=== PATIENT | male | born 1950 | race Caucasian/White ===

== ENCOUNTER 2018-11-03 14:01 | Outpatient (REF) | payer MEDICARE, SELFPAY ==
[2018-11-03 21:08] LABS: HGB 16.2 g/dL (13.5-17.5); Mean Corp. HGB Concentration 34.5 g/dL (32.0-36.0); Mean Corpuscular Hemoglobin 31.5 pg (27.0-33.0); Mean Corpuscular Volume 91.3 fL (80-95); Mean Platelet Volume 10.3 fL (8.0-11.0); Platelet Count 222 x1000/uL (130-400); RBC 5.15 m/cumm (4.50-6.00); RBC Distribution Width 13.1 % (11.8-14.1); White Blood Cell Count 8.66 k/cumm (4.4-10.8)
[2018-11-03 21:31] LABS: BUN 15 mg/dL (7-18); CREATININE 1.15 mg/dL (0.70-1.30); Chloride 104 mmol/L (98-107); Glucose 94 mg/dL (70-100); Sodium 140 mmol/L (136-145); TSH 2.22 uIU/mL (0.358-3.74)
[2018-11-03 21:37] LABS: Calcium 11.6 mg/dL (8.5-10.1)
== END 2018-11-03 14:21 ==
LOC: NCHCN 14:01
PROVIDERS: PCP Internal Medicine; Visit Provider Internal Medicine
DX: R00.1 Bradycardia, unspecified (principal); R53.83 Other fatigue
CPT/HCPCS: 80048; 85027; 84443

== ENCOUNTER 2019-02-05 11:49 | Outpatient (REF) | payer MEDICARE, SELFPAY ==
[2019-02-05 21:19] LABS: ALT 29 U/L (12-78); AST 16 U/L (15-37); Cholesterol 272 mg/dL (50-200); HDL Cholesterol 34 mg/dL (40-60); LDL CHOLESTEROL 212 mg/dL (<100); Triglyceride 139 mg/dL (30-150)
== END 2019-02-05 12:09 ==
LOC: LBN 11:49
PROVIDERS: PCP Internal Medicine; Visit Provider Internal Medicine Cardiovascular Disease
DX: I10 Essential (primary) hypertension (principal)
CPT/HCPCS: 80061; 83721; 84450; 84460

== ENCOUNTER 2020-10-21 18:57 | Outpatient (REF) | payer MEDICARE, SELFPAY ==
[2020-10-21 21:53] LABS: Anion Gap 8.1 mmol/L (3-11); BUN 17 mg/dL (7-18); CO2 25.9 mmol/L (21.0-32.0); CREATININE 1.19 mg/dL (0.70-1.30); Calcium 11.4 mg/dL (8.5-10.1); Calculated LDL 85 mg/dL (<100); Chloride 103 mmol/L (98-107); Cholesterol 169 mg/dL (<200); Glucose 94 mg/dL (74-106); HDL Cholesterol 32 mg/dL (40-60); Potassium 4.6 mmol/L (3.5-5.1); Sodium 137 mmol/L (136-145); Triglyceride 262 mg/dL (<150)
== END 2020-10-21 19:17 ==
LOC: NCHCN 18:57
PROVIDERS: PCP Internal Medicine; Visit Provider Internal Medicine
DX: E78.5 Hyperlipidemia, unspecified (principal); I10 Essential (primary) hypertension; E83.52 Hypercalcemia
CPT/HCPCS: 80048; 80061

== ENCOUNTER 2021-10-18 21:08 | Outpatient (REF) | payer MEDICARE, SELFPAY ==
[2021-10-18 21:31] LABS: ALT 22 U/L (16-63); AST 13 U/L (15-37); Albumin 3.8 g/dL (3.4-5.0); Alkaline Phosphatase 86 U/L (46-116); Anion Gap 5.8 mmol/L (3-11); BUN 13 mg/dL (7-18); Bilirubin, Total 0.4 mg/dL (0.2-1.0); CO2 28.2 mmol/L (21.0-32.0); CREATININE 1.2 mg/dL (0.70-1.30); Chloride 104 mmol/L (98-107); Estimated GFR 59.35 (mL/min/1.73m2); Glucose 135 mg/dL (74-106); Potassium 4.9 mmol/L (3.5-5.1); Sodium 138 mmol/L (136-145); Total Protein 6.8 g/dL (6.4-8.2)
[2021-10-18 21:43] LABS: Calcium 11.6 mg/dL (8.5-10.1)
[2021-10-19 00:25] LABS: Vitamin D 25 Total 25.9 ng/mL (30-100)
[2021-10-20 10:06] LABS: Parathyroid Hormone,Intact 161 pg/mL (19-88)
== END 2021-10-18 21:09 | disposition home or self-care (01) ==
LOC: NCHCN 21:08
PROVIDERS: PCP Internal Medicine; Visit Provider Internal Medicine
DX: E21.0 Primary hyperparathyroidism (principal); I10 Essential (primary) hypertension
CPT/HCPCS: 80053; 82306; 83970

== ENCOUNTER 2023-01-22 14:59 | Outpatient (REF) | payer MEDICARE, MEDICAID, SELFPAY ==
[2023-01-22 14:56] LABS: HCT 46.7 % (40.0-50.0); HGB 15.7 g/dL (13.5-17.5); MCHC 33.6 % (32.0-36.0); MCV 89 fL (80-95); MPV 9.7 fL (8.0-11.0); Platelet Count 267 10^3/uL (130-400); RBC 5.24 10^6/uL (4.36-5.78); RDW-SD 42.3 fL; WBC 7.92 10^3/uL (4.4-10.8)
--- OUTSIDE RECORDS SUMMARY | 2023-01-22 15:05 | XMS_ITS | CCD ---
Author Name Unknown Address [address] [place] [address] [id number] Organization Unknown Address [address] [place] [address] [id number] Care Team Providers Care Neon Sign Erector Name Role Phone LIAN WILLIS Attending Physician [phone] Vital Signs Unknown or Not Available. Allergies Allergy Code Allergy Type Reaction Status GABAPENTIN 94635 Drug allergy AGHITATION Active Procedures Unknown or Not Available. History of Immunizations Unknown or Not Available. Problems Unknown or Not Available. Results Unknown or Not Available. Active Medications Unknown or Not Available. Medications Administered During Visit Unknown or Not Available. Encounters Encounter Diagnosis Diagnosis Code Start Date Refusal of treatment by patient [id number] 09/14/2021 Social History Smoking Status Code Start Date End Date Former smoker [id number] Patient Decision Aids Unknown or Not Available. Discharge Instructions You were admitted to [facility] on 09/14/2021 08:32 with a principal diagnosis of Procedure and treatment not carried out because of patient's decision for other reasons You were discharged from [facility] on 09/14/2021 08:32 Should you have any questions prior to discharge, please contact a member of your healthcare team. If you have left the hospital and have any questions, please contact your primary care physician. Chief Complaint and Reason For Visit Chief Complaint Date of Onset Primary hyperparathyroidism Function Status Unknown or Not Available. Plan of Care Unknown or Not Available. Referral/Transition of Care Unknown or Not Available.
--- OUTSIDE RECORDS SUMMARY | 2023-01-22 15:05 | XMS_ITS | CCD ---
Author Name Unknown Address [address] [place] [address] [id number] Organization Unknown Address [address] [place] [address] [id number] Care Team Providers Care [employer] Name Role Phone LIAN WILLIS Attending Physician [phone] Vital Signs Unknown or Not Available. Allergies Allergy Code Allergy Type Reaction Status GABAPENTIN 39110 Drug allergy AGHITATION Active Procedures Unknown or Not Available. History of Immunizations Unknown or Not Available. Problems Unknown or Not Available. Results Unknown or Not Available. Active Medications Unknown or Not Available. Medications Administered During Visit Unknown or Not Available. Encounters Encounter Diagnosis Diagnosis Code Start Date Imaging of musculoskeletal system abnormal [id number] 12/05/2021 Social History Smoking Status Code Start Date End Date Former smoker [id number] Patient Decision Aids Unknown or Not Available. Discharge Instructions You were admitted to [facility] on 12/05/2021 13:47 with a principal diagnosis of Abnormal findings on diagnostic imaging of other parts of musculoskeletal system You were discharged from [facility] on 12/05/2021 13:47 Should you have any questions prior to discharge, please contact a member of your healthcare team. If you have left the hospital and have any questions, please contact your primary care physician. Chief Complaint and Reason For Visit Chief Complaint Date of Onset HYPERPARATHYROIDISM Function Status Unknown or Not Available. Plan of Care Unknown or Not Available. Referral/Transition of Care Unknown or Not Available.
--- OUTSIDE RECORDS SUMMARY | 2023-01-22 15:05 | XMS_ITS | CCD ---
Author Name Unknown Address [address] [place] [address] [id number] Organization Unknown Address [address] [place], [place] [id number] Care Team Providers Care [employer] Dean Name Role Phone EMILY BRADY Attending Physician [phone] Vital Signs Unknown or Not Available. Allergies Allergy Code Allergy Type Reaction Status GABAPENTIN 77047 Drug allergy AGHITATION Active Procedures Unknown or Not Available. History of Immunizations Unknown or Not Available. Problems Unknown or Not Available. Results CALCIUM URINE QUANT - Collec t Date/Time: 01/01/2022 11:05 Test Name Code Test Result Test Units Test Ref Rang e CALCIUM CONC. URINE 18 mg/dL TOTAL VOLUME 2125.0 mL HOURS COLLECTED 24 hours CALCIUM URINE 98527-9 383 mg/24 hr L=50 H=400 COLLECTION- TIMED N/A CHRISTINA. STARTED 01/01/22 N/A COMPREHENSIVE METABOLIC PANE L (CMP) - Collect Date/Time: 01/02/2022 12:27 Test Name Code Test Result Test Units Test Ref Rang e GLUCOSE 2345-7 105 mg/dL L=70 H=116 BUN 3094-0 19 mg/dL L=6 H=25 CREATININE 2160-0 1.30 mg/dL L=0.67 H=1.17 SODIUM SERUM 2951-2 138 mmol/L L=136 H=145 POTASSIUM SERUM 2823-3 4.9 mmol/L L=3.4 H=5 .2 CHLORIDE SERUM 2075-0 105 mmol/L L=96 H=110 CARBON DIOXIDE (CO2) 2028-9 27 mmol/L L=22 H=34 ANION GAP 08634-3 6.4 mmol/L CALCIUM SERUM 69030-4 11.8 mg/dL L=8.2 H=10. 2 BILIRUBIN TOTAL 1975-2 0.5 mg/dL L=0.0 H=1 .3 ALK. PHOS. 6768-6 72 U/L L=46 H=116 SGOT (AST) 1920-8 12 U/L L=15 H=37 SGPT (ALT) 1742-6 15 U/L L=12 H=78 TOTAL PROTEIN 2885-2 6.8 gm/dL L=6.0 H=8.0 ALBUMIN 1751-7 3.7 gm/dL L=3.4 H=5.0 AGE 71 years eGFR (non-Afr.Amer.) 76943-6 54 mL/min eGFR (Afr-[place]) 21935-5 65 mL/min CREATININE URINE 24 HOUR* - Collect Date/Time: 01/01/2022 11:05 Test Name Code Test Result Test Units Test Ref Rang e CREAT. CONC. URINE 71.3 mg/dL TOTAL VOLUME 2125.0 mL HOURS COLLECTED 24 hours CREATININE URINE 01634-9 1.52 gm/24 hr L=1.00 H =2.00 COLLECTION-- TIMED N/A CHRISTINA. STARTED 01/01/22 N/A MAGNESIUM SERUM* - Collect D ate/Time: 01/02/2022 12:27 Test Name Code Test Result Test Units Test Ref Rang e MAGNESIUM 91748-7 1.9 mg/dL L=1.8 H=2.4 PHOSPHORUS SERUM - Collect D ate/Time: 01/02/2022 12:27 Test Name Code Test Result Test Units Test Ref Rang e PHOSPHORUS SERUM 2.2 mg/dL L=2.2 H= 4.2 SODIUM URINE - Collect Date/ Time: 01/02/2022 11:05 Test Name Code Test Result Test Units Test Ref Rang e SODIUM CONC. URINE 92 mmol/L TOTAL VOLUME 2125.0 mL HOURS COLLECTED 24 hours SODIUM URINE 196 mmol/24 hr L=43 H=217 COLLECTION: TIMED N/A CHRISTINA. STARTED 01/01/22 N/A TSH THYROID STIMULATING HORM ONE* - Collect Date/Time: 01/02/2022 12:27 Test Name Code Test Result Test Units Test Ref Rang e TSH 3014-8 2.917 uIU/mL L=0.360 H=3.74 0 HEMOGRAM + PLATELET WO DIFF - Collect Date/Time: 01/02/2022 12:27 Test Name Code Test Result Test Units Test Ref Rang e WBC 6690-2 8.14 th/cmm L=5.00 H=10.00 NRBC % 06163-1 0.0 % L=0.0 H=0.0 NRBC abs count 90200-5 0.0 mil/cmm L=0.0 H=0. 0 RBC 789-8 5.28 mil/cmm L=4.30 H=6.20 HEMOGLOBIN 718-7 16.5 gm/dL L=13.0 H=17.0 HEMATOCRIT 4544-3 48 % L=45 H=52 MCV 787-2 91 fL L=82 H=92 MCH 785-6 31.3 pg L=27.0 H=31.0 MCHC 786-4 34.5 % L=32.0 H=36.0 RDW-SD 788-0 43.3 fL L=39.0 H=49.0 PLATELET COUNT 777-3 221 th/cmm L=150 H=45 0 PARATHYROID HORMONE INTACT - Collect Date/Time: 01/02/2022 12:27 Test Name Code Test Result Test Units Test Ref Rang e Intact PTH 171 N/A 19-88 Active Medications Unknown or Not Available. Medications Administered During Visit Unknown or Not Available. Encounters Encounter Diagnosis Diagnosis Code Start Date Hypercalcemia [id number] 01/02/2022 Social History Smoking Status Code Start Date End Date Former smoker [id number] Patient Decision Aids Unknown or Not Available. Discharge Instructions You were admitted to [facility] on 01/02/2022 11:59 with a principal diagnosis of Hypercalcemia You had the following tests done:COMPREHENSIVE METABOLIC PANEL (CMP)HEMOGRAM + PLATELET WO DIFFMAGNESIUM SERUM*PARATHYROID HORMONE INTACTPHOSPHORUS SERUMTSH THYROID STIMULATING HORMONE*SODIUM URINECALCIUM URINE QUANTCREATININE URINE 24 HOUR* You were discharged from [facility] on 01/02/2022 11:59 Should you have any questions prior to discharge, please contact a member of your healthcare team. If you have left the hospital and have any questions, please contact your primary care physician. Chief Complaint and Reason For Visit Unknown or Not Available. Function Status Unknown or Not Available. Plan of Care Unknown or Not Available. Referral/Transition of Care Unknown or Not Available.
[2023-01-22 15:07] LABS: Anion Gap 2.2 mmol/L (3-11); BUN 19 mg/dL (7-18); CO2 30.8 mmol/L (21.0-32.0); CREATININE 1.5 mg/dL (0.70-1.30); Calcium 9.4 mg/dL (8.5-10.1); Calculated LDL 108 mg/dL (<100); Chloride 105 mmol/L (98-107); Cholesterol 168 mg/dL (<200); Estimated GFR 48.55 (mL/min/1.73m2); Glucose 114 mg/dL (74-106); HDL Cholesterol 40 mg/dL (40-60); Potassium 5.1 mmol/L (3.5-5.1); Sodium 138 mmol/L (136-145); Triglyceride 102 mg/dL (<150)
== END 2023-01-22 15:00 | disposition home or self-care (01) ==
LOC: NCHCN 14:59
PROVIDERS: PCP Internal Medicine; Visit Provider Internal Medicine
DX: I10 Essential (primary) hypertension (principal); R53.83 Other fatigue; R06.09 Other forms of dyspnea; E78.5 Hyperlipidemia, unspecified
CPT/HCPCS: 80048; 80061; 85027

== ENCOUNTER 2023-02-15 15:36 | Outpatient (REF) | payer MEDICARE, MEDICAID, SELFPAY ==
[2023-02-15 14:47] LABS: Anion Gap 9.1 mmol/L (3-11); BUN 21 mg/dL (7-18); CO2 26.9 mmol/L (21.0-32.0); CREATININE 1.4 mg/dL (0.70-1.30); Calcium 9.3 mg/dL (8.5-10.1); Chloride 104 mmol/L (98-107); Estimated GFR 52.41 (mL/min/1.73m2); Glucose 142 mg/dL (74-106); Potassium 4.6 mmol/L (3.5-5.1); Sodium 140 mmol/L (136-145)
== END 2023-02-15 15:37 | disposition home or self-care (01) ==
LOC: NCHCN 15:36
PROVIDERS: PCP Internal Medicine; Visit Provider Internal Medicine
DX: I10 Essential (primary) hypertension (principal)
CPT/HCPCS: 80048

== ENCOUNTER 2023-08-09 08:36 | Day surgery (SDC) | payer MEDICARE, MEDICAID, SELFPAY ==
[2023-08-09 09:26] VITALS: BP 173/83; PULSE 67; RESP 16; TEMP 36.4; O2SAT 96
[2023-08-09] MEDS: Tropicam./Phenyleph. (1/2.5%) 5 ML BTL OD ×3 (09:36→09:50)
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
[2023-08-09 10:57] VITALS: BMI 26.7
[2023-08-09] MEDS: Tetracaine 0.5% 4 ML BTL OD (10:58)
[2023-08-09] MEDS: Povidone-Iodine Ophth 30 ML BTL (11:00)
[2023-08-09] MEDS: Lidocaine 1% Pres-Free 5 ML VIAL (11:04)
[2023-08-09] MEDS: Duovisc Viscoelastic System EACH 1 EACH (11:04)
[2023-08-09] MEDS: Balanced Salt Soln.-PLUS 500 ML BAG OP (11:05)
[2023-08-09] MEDS: Phenylephrine/Lidocaine (15/10) MG/ML 1 ML VIAL (11:07)
[2023-08-09] MEDS: Triamcinolone 40 MG/ML VIAL (11:13)
[2023-08-09 11:25] VITALS: BP 136/84; PULSE 70; RESP 18; TEMP 36.4; O2SAT 98
--- NOTE | 2023-08-09 11:25 | W.PM.DSUDISC ---
Date of service: 08/09/23 Time of Service: 11:26 Discharge Plan Disposition Patient Disposition: Home Discharge Details Attending Provider: Elkin Lucero Primary Care Provider: Rehana Newberry Home Meds and New Rx's Prescriptions: No Action tiotropium bromide [Spiriva with HandiHaler] 18 mcg capsule, w/inhalation device 1 cap inhalation DAILY Rx Instructions: puncture 1 cap using device; one dose = 2 inhalations trazodone 150 mg tablet 150 mg PO QHS omeprazole 20 mg capsule,delayed release(DR/EC) 20 mg PO BID lisinopril 20 mg tablet 20 mg PO DAILY polyethylene glycol 3350 [ClearLax] 17 gram/dose powder 17 g PO DAILY PRN venlafaxine 150 mg tablet extended release 24hr 150 mg PO DAILY venlafaxine 75 mg tablet 75 mg PO DAILY simvastatin 20 mg tablet 20 mg PO DAILY risperidone 0.5 mg tablet 0.5 mg PO DAILY aspirin 81 mg capsule 81 mg PO DAILY acetaminophen 500 mg tablet 1,000 mg PO .8hrs carboxymethylcellulose sodium [Lubricant Dry Eye Relief] 1 % drops, liquid gel 1 drp ophthalmic (eye) DAILY PRN Discharge Instructions Stand Alone Forms: Post-op Topical Cataract, Ashok Ganey (DSU) Discharge Orders Discharge Orders: Discharge Order (Routine); Ordered 08/09/23 Ordered By: Elkin Lucero DS: Diagnosis Discharge Diagnosis (1) Posterior subcapsular age-related cataract, right eye: Status: Resolved (2) Nuclear age-related cataract, right eye: Status: Resolved
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
--- NOTE | 2023-08-09 11:50 | W.ANESPOSTOP ---
Postoperative Evaluation Date, Time and Location Date Performed: 08/09/23 Time Performed: 11:40 Patient Location: Day Surgery Unit Vital Signs Most Recent Imported Vital Signs: Most Recent Vital Signs Temp Pulse Resp BP Pulse Ox 36.4 C L 70 18 136/84 98 08/09/23 11:25 08/09/23 11:25 08/09/23 11:25 08/09/23 11:25 08/09/23 11:25 Pain Score Most Recent Pain Score: Most Recent Pain Score Pain Level 0 08/09/23 11:25 Assessment Mental Status: Awake (Alert & Oriented to Patient Baseline) Airway and Respiratory Function: Patent airway with normal (patient baseline) respiratory exam Cardiovascular Function: Hemodynamically Stable Hydration Status: Adequately Hydrated Nausea & Vomiting: No Nausea or Vomiting Pain: Pt. Denies Any Pain Peripheral Nerve Block: Patient did not receive a nerve block
== END 2023-08-09 11:43 | disposition home or self-care (01) ==
LOC: SUR 08:38
PROVIDERS: PCP Internal Medicine; Visit Provider Ophthalmology
PROC: (CPT 66984; principal; 2023-08-09 12:00)
DX: H25.041 Posterior subcapsular polar age-related cataract, right eye (principal); H25.11 Age-related nuclear cataract, right eye
CPT/HCPCS: 66984; 00123; V2632

== ENCOUNTER 2023-08-23 10:19 | Day surgery (SDC) | payer MEDICARE, MEDICAID, SELFPAY ==
[2023-08-23 10:30] VITALS: BP 173/89; PULSE 69; RESP 18; TEMP 36.2; O2SAT 96
[2023-08-23] MEDS: Tropicam./Phenyleph. (1/2.5%) 5 ML BTL OS ×3 (10:35→10:49)
[2023-08-23 11:00] VITALS: BMI 26.7
--- NOTE | 2023-08-23 11:00 | ANES.PREOP_ITS ---
General Info Date of Service Date Performed: 08/23/23 Height: 5 ft 11 in Weight: 87 kg Body Mass Index (BMI): 26.7 Surgical Procedure: Operation Date: 08/23/23 13:40 Proposed Procedure Side Surgeon p Cataract Extraction with IOL Implant Left Elkin Lucero MD Meds Allergies and Home Medications Allergies Allergy/AdvReac Type Severity Reaction Status Date / Time gabapentin Allergy Intermediate Facial Verified 08/23/23 10:39 Swelling Home Medication Medication Instructions Recorded acetaminophen 500 mg tablet 1,000 mg PO .8hrs 08/06/23 aspirin 81 mg capsule 81 mg PO DAILY 08/06/23 carboxymethylcellulose sodium 1 % 1 drp ophthalmic (eye) DAILY PRN 08/06/23 eye liquid gel drops (Lubricant Dry Eye Relief) lisinopril 20 mg tablet 20 mg PO DAILY 08/06/23 omeprazole 20 mg capsule,delayed 20 mg PO BID 08/06/23 release polyethylene glycol 3350 17 17 g PO DAILY PRN 08/06/23 gram/dose oral powder (ClearLax) risperidone 0.5 mg tablet 0.5 mg PO DAILY 08/06/23 simvastatin 20 mg tablet 20 mg PO DAILY 08/06/23 tiotropium bromide 18 mcg capsule 1 cap inhalation DAILY 08/06/23 with inhalation device (Spiriva with HandiHaler) trazodone 150 mg tablet 150 mg PO QHS 08/06/23 venlafaxine 150 mg tablet,extended 150 mg PO DAILY 08/06/23 release 24 hr venlafaxine 75 mg tablet 75 mg PO DAILY 08/06/23 Current Visit Medications: Current Medications Generic Name Dose Route Start Last Admin Trade Name Chelsey PRN Reason Stop Dose Admin Acetaminophen 1,000 mg 08/23/23 06:00 Acetaminophen 500 Mg Tab PO 09/22/23 05:59 Q4H PRN PRN Balanced Salt Solution 500 ml 08/23/23 06:00 Balanced Salt Soln.-Plus 500 Ml Bag OP 09/22/23 05:59 DIRECTED ROBERT Miscellaneous Medication 0 ml 08/23/23 06:00 08/23/23 10:49 Tropicam./Phenyleph. (1/2.5%) 5 Ml Btl OS 09/22/23 05:59 1 drp DIRECTED ROBERT Administration Miscellaneous Medication 0 ml 08/23/23 06:00 Prednisolone 1%, Moxifloxacin 0.5%, Bromfenac 0.09% 5ml Btl OS 09/22/23 05:59 DIRECTED [facility] Tetracaine HCl 0 ml 08/23/23 06:00 Tetracaine 0.5% 4 Ml Btl OS 09/22/23 05:59 DIRECTED [facility] PFSH Active Problems Active Problems: Problem Status Onset Code Posterior subcapsular age-related cataract of left eye H25.042 Nuclear age-related cataract, left eye H25.12 Posterior subcapsular age-related cataract, right eye H25.041 Nuclear age-related cataract, right eye H25.11 Medical History Medical History Hyperlipidemia History of traumatic head injury 02/08/2010, 02/05/2015 HTN (hypertension) Chronic dyspnea AAA (abdominal aortic aneurysm) repaired 02/2021-Released from care Balance disorder Per pt. denies COPD (chronic obstructive pulmonary disease) Dementia Surgical History Surgical History History of cataract surgery S/P AAA repair Tobacco Smoking/Tobacco Use Status: Former Tobacco Use Alcohol Alcohol Intake: never Substance Use Substance use: Occasionally Substance use type: marijuana Vital Signs and Lab Results Vital Signs Most Recent Vital Signs in EMR: Most Recent Vital Signs Temp Pulse Resp BP Pulse Ox 36.2 C L 69 18 173/89 H 96 08/23/23 10:30 08/23/23 10:30 08/23/23 10:30 08/23/23 10:30 08/23/23 10:30 Lab Results Blood Type / Crossmatch: No Data to Display Complete Blood Count: No Data to Display Complete Metabolic Panel: No Data to Display Liver Function Panel: No Data to Display Coagulation Panel: No Data to Display Cardiac Panel: No Data to Display Arterial Blood Gas: No Data to Display Venous Blood Gas: No Data to Display Pancreas Panel: No Data to Display Thyroid Panel: No Data to Display Infectious Disease: No Data to Display Blood Cultures: No Data to Display Toxicology Panel: No Data to Display Anesthesia Assessment and Plan Anesthesia History Personal History: No History of Anesthesia Complications Family History: No Family History of Anesthesia Complications Exercise Tolerance Exercise Tolerance: Metabolic Equivalents>4 Pertinent Negatives Pertinent Negatives: No Symptoms of GERD Cardiac & Pulmonary Exam Cardiac Exam: Normal S1/S2 Heart Sounds Pulmonary Exam: Clear Bilateral Breath Sounds Implantable Cardiac Device Does patient have a Pacemaker or an ICD?: No Airway Exam Known Difficult Airway: No Mallampati Class: 3 Mouth Opening: Normal (> 3cm) Thyromental Distance: Greater than 3 cm Neck Range of Motion: Limited ROM Neck Circumference: Normal Teeth Condition: Normal Dentition ASA Classification ASA Score: ASA 3 Emergency Case?: No NPO Status NPO Status: NPO Clears >2 hours, Solids >8 hours Anesthesia Plan Resuscitation Status: Full Code Anesthesia Technique: MAC Anesthesia Airway Planned: Natural Airway Monitors Used: Standard Monitors
[2023-08-23] MEDS: Balanced Salt Soln.-PLUS 500 ML BAG OP (11:45)
[2023-08-23] MEDS: Tetracaine 0.5% 4 ML BTL OS (11:47)
[2023-08-23] MEDS: Duovisc Viscoelastic System EACH 1 EACH (11:48)
[2023-08-23] MEDS: Lidocaine 1% Pres-Free 5 ML VIAL (11:49)
[2023-08-23] MEDS: Phenylephrine/Lidocaine (15/10) MG/ML 1 ML VIAL (11:51)
[2023-08-23] MEDS: Povidone-Iodine Ophth 30 ML BTL (11:53)
[2023-08-23 12:02] VITALS: BP 156/78; PULSE 68; RESP 16; TEMP 36.2; O2SAT 98
--- NOTE | 2023-08-23 12:03 | W.PM.DSUDISC ---
Date of service: 08/23/23 Time of Service: 12:03 Discharge Plan Disposition Patient Disposition: Home Discharge Details Attending Provider: Elkin Lucero Primary Care Provider: Rehana Newberry Home Meds and New Rx's Prescriptions: No Action tiotropium bromide [Spiriva with HandiHaler] 18 mcg capsule, w/inhalation device 1 cap inhalation DAILY Rx Instructions: puncture 1 cap using device; one dose = 2 inhalations trazodone 150 mg tablet 150 mg PO QHS omeprazole 20 mg capsule,delayed release(DR/EC) 20 mg PO BID lisinopril 20 mg tablet 20 mg PO DAILY polyethylene glycol 3350 [ClearLax] 17 gram/dose powder 17 g PO DAILY PRN venlafaxine 150 mg tablet extended release 24hr 150 mg PO DAILY venlafaxine 75 mg tablet 75 mg PO DAILY simvastatin 20 mg tablet 20 mg PO DAILY risperidone 0.5 mg tablet 0.5 mg PO DAILY aspirin 81 mg capsule 81 mg PO DAILY acetaminophen 500 mg tablet 1,000 mg PO .8hrs carboxymethylcellulose sodium [Lubricant Dry Eye Relief] 1 % drops, liquid gel 1 drp ophthalmic (eye) DAILY PRN Discharge Instructions Stand Alone Forms: Post-op Topical Cataract, Ashok Ganey (DSU) Discharge Orders Discharge Orders: Discharge Order (Routine); Ordered 08/23/23 Ordered By: Elkin Lucero DS: Diagnosis Discharge Diagnosis (1) Posterior subcapsular age-related cataract of left eye: Status: Resolved (2) Nuclear age-related cataract, left eye: Status: Resolved
--- NOTE | 2023-08-23 12:04 | W.PM.OP ---
Date of service: 08/23/23 Time of Service: 12:04 Operative Note Operative Note DATE OF PROCEDURE: 08/23/23 PRE-OP DIAGNOSIS: Nuclear/posterior subcapsular cataract, left eye POST-OP DIAGNOSIS: same PROCEDURE: Cataract extraction using phacoemulsification with intraocular lens implant, left eye SURGEON: Elkin Lucero ANESTHESIA TYPE: Local By Surgeon and MAC Refer to Anesthesia Record PATHOLOGY: none sent COMPLICATIONS: None Patient was transported to: same day Patient's condition: stable Implants: Keven Clareon [id number] Indications: Progressive decreased vision due to cataract, left eye Procedure Description: CATARACT SURGERY OPERATIVE REPORT PREOPERATIVE DIAGNOSIS: Nuclear/posterior subcapsular cataract, left eye POSTOPERATIVE DIAGNOSIS: Same OPERATION: Cataract extraction using phacoemulsification with posterior chamber intraocular lens implant, left eye. IOL: IOL Superintendent Plant Protection/Model: Keven Clareon [id number] IOL Power: + 18.5 diopters IOL Serial Number: [id number] Optic Diameter: 6.0mm Haptic/Overall Diameter: 13.0mm PHACO INFO: KevenGeolab-ITurion Vision System with OZil and Active Fluidics Cumulative Dispersed Energy (CDE): 9.36 seconds SURGEON: Elkin Lucero MD, DARIEN ANESTHESIA: Monitored Anesthesia Care (MAC), with local sub-tenon's anesthetic infiltration COMPLICATIONS: None SPECIMENS: None INDICATIONS FOR PROCEDURE: The patient is a 73-year-old male with history of diminished visual acuity in both eyes secondary to the development of bilateral nuclear/posterior subcapsular cataract. He has already undergone cataract surgery in the right eye and is doing well postoperatively. He now presents for cataract surgery in the left eye. See office notes for detailed information PROCEDURE: The correct surgical eye was identified and marked as the left eye and the pupil was dilated in the preoperative area using mydriatics and cycloplegics. The dilated pupil size was 7.0 mm. Oral sedation was administered in the form of an Imprimis MKO Melt (midazolam 3mg/ketamine 25mg/ondansetron 2mg). The patient elected to proceed without oral sedation. The patient was brought to the operating room where cardiopulmonary monitoring was instituted and surgical time-out was performed, confirming the correct operative eye and IOL power. Topical anesthesia was administered and ophthalmic povidone-iodine 5% was instilled into the conjunctival fornices. The harman-ocular area was prepped with Betadine 10% solution and draped in the usual sterile fashion for intraocular surgery, including an aperture drape. A Tegaderm transparent film dressing was cut in half and used to cover the lashes and lid margins. Care was taken to sequester the lashes and lid margins under the Tegaderm dressing. A lid speculum was placed between the lids of the operative eye and the Keven LuxOR Revalia operating microscope was maneuvered into position. Holley scissors were then used to make a conjunctival buttonhole approximately 6mm posterior to the limbus in the inferonasal quadrant. Blunt dissection was carried out to expose bare sclera, and a blunt-tipped sub-tenon?s anesthesia cannula was introduced and passed posteriorly along the globe where non-preserved plain lidocaine was injected into posterior sub-Tenon?s space. A sideport knife was used to make a paracentesis port. Intraocular phenylephrine/lidocaine was injected into the anterior chamber. The anterior chamber was then filled with viscoelastic. A keratome knife was used construct a two-plane clear corneal tunnel extending 2.0mm into clear cornea. A flap was raised on the anterior capsule and capsulorhexis forceps were used to complete a continuous curvilinear capsulorhexis of 7.0mm. Balanced salt solution was then used to perform cortical cleaving hydrodissection and nuclear hydrodelineation until the lens could be freely rotated within the capsular bag. The lens nucleus was then disassembled and removed within the capsular bag and iris plane using phacoemulsification. Residual cortical material was removed using the irrigation/aspiration handpiece. The posterior capsule was carefully polished to remove as much residual lens epithelial cells as safely possible. The capsular bag was then inflated and the anterior chamber deepened with viscoelastic. The lens implant described above was inserted into the capsular bag using the Kveen Autonome Injector. A Kuglen hook was used to dial the IOL into position. Residual viscoelastic was then removed first from posterior to the IOL, then from the anterior chamber using the I/A handpiece. The lens implant was noted to center nicely within the capsular bag. The incisions were stromally hydrated, and the anterior chamber was reformed using BSS. Then 0.5cc of moxifloxacin 1.0mg/ml were injected into the capsular bag and anterior chamber. The incisions were checked with a Weck spear and found to be secure. Several drops of ophthalmic povidone-iodine 5% were then applied to the eye followed by two drops of Imprimis combination prednisolone/moxifloxacin/nepafenac solution. The drapes were removed and a clear plastic protective eye shield was placed over the eye. The patient was then returned to Same Day Surgery in stable condition.
--- NOTE | 2023-08-23 12:28 | W.ANESPOSTOP ---
Postoperative Evaluation Date, Time and Location Date Performed: 08/23/23 Time Performed: 12:20 Patient Location: Day Surgery Unit Vital Signs Most Recent Imported Vital Signs: Most Recent Vital Signs Temp Pulse Resp BP Pulse Ox 36.2 C L 68 16 156/78 H 98 08/23/23 12:02 08/23/23 12:02 08/23/23 12:02 08/23/23 12:02 08/23/23 12:02 Pain Score Most Recent Pain Score: Most Recent Pain Score Pain Level 0 08/23/23 12:02 Assessment Mental Status: Awake (Alert & Oriented to Patient Baseline) Airway and Respiratory Function: Patent airway with normal (patient baseline) respiratory exam Cardiovascular Function: Hemodynamically Stable Hydration Status: Adequately Hydrated Nausea & Vomiting: No Nausea or Vomiting Pain: Pt. Denies Any Pain Peripheral Nerve Block: Patient did not receive a nerve block
== END 2023-08-23 12:24 | disposition home or self-care (01) ==
LOC: SUR 10:19
PROVIDERS: PCP Internal Medicine; Visit Provider Ophthalmology
PROC: (CPT 66984; principal; 2023-08-23 13:30)
DX: H25.042 Posterior subcapsular polar age-related cataract, left eye (principal); H25.12 Age-related nuclear cataract, left eye; I10 Essential (primary) hypertension; Z98.41 Cataract extraction status, right eye
CPT/HCPCS: 66984; 00123; V2632

== ENCOUNTER 2024-01-13 13:25 | Outpatient (REF) | payer MEDICARE, MEDICAID, SELFPAY ==
[2024-01-13 21:40] LABS: HCT 46.7 % (40.0-50.0); HGB 15.9 g/dL (13.5-17.5); MCH 31.2 pg (27.0-33.0); MCV 92 fL (80-95); MPV 10.2 fL (8.0-11.0); Platelet Count 204 10^3/uL (130-400); RBC 5.09 10^6/uL (4.36-5.78); RDW 12.5 % (11.8-14.1); RDW-SD 42.1 fL; WBC 7.61 10^3/uL (4.4-10.8)
[2024-01-13 21:47] LABS: Anion Gap 5.9 mmol/L (3-11); BUN 17 mg/dL (7-18); CO2 29.1 mmol/L (21.0-32.0); CREATININE 1.3 mg/dL (0.70-1.30); Calcium 9.2 mg/dL (8.5-10.1); Chloride 105 mmol/L (98-107); Estimated GFR 57.29 (mL/min/1.73m2); Glucose 82 mg/dL (74-106); Potassium 4.4 mmol/L (3.5-5.1); Sodium 140 mmol/L (136-145)
[2024-01-13 22:33] LABS: Vitamin D 25 Total 23.9 ng/mL (30-100)
== END 2024-01-13 13:26 | disposition home or self-care (01) ==
LOC: NCHCN 13:25
PROVIDERS: PCP Internal Medicine; Visit Provider Internal Medicine
DX: I10 Essential (primary) hypertension (principal); R53.83 Other fatigue; E55.9 Vitamin D deficiency, unspecified
CPT/HCPCS: 80048; 82306; 85027

== ENCOUNTER 2024-08-21 15:41 | Outpatient (REF) | payer MEDICARE, MEDICAID, SELFPAY ==
--- NOTE | 2024-08-21 12:05 | SKI_PTH ---
PATIENT: Wily Nj [id number] AGE/SX: 74/M ROOM: RE08/21/[address]: Rehana Newberry : 1950 BED: DIS: 08/21/2024 SPEC #: [id number] RECD: 08/24/24 12:39 STATUS: ANN-MARIE MARIE #: [id number] CHRISTINA: 08/21/24 12:[address]: Rehana Newberry DEPT: Surgical Specimen RECD BY: Nallely Fisher Tissues: 1 - SKIN BIOPSY(SHAVE/PUNCH) Procedures: SKIN LEVEL 4 Comments: [id number]
== END 2024-08-21 15:42 | disposition home or self-care (01) ==
LOC: NCHCN 15:41
PROVIDERS: PCP Internal Medicine; Visit Provider Internal Medicine
DX: L85.8 Other specified epidermal thickening (principal); B07.8 Other viral warts
CPT/HCPCS: 88305

== ENCOUNTER 2025-05-10 16:29 | Outpatient (REF) | payer MEDICARE, MEDICAID, SELFPAY ==
[2025-05-10 21:01] LABS: HCT 42.5 % (40.0-50.0); HGB 14.3 g/dL (13.5-17.5); MCH 30.6 pg (27.0-33.0); MCHC 33.6 % (32.0-36.0); MCV 91 fL (80-95); MPV 10.2 fL (8.0-11.0); Platelet Count 214 10^3/uL (130-400); RBC 4.68 10^6/uL (4.36-5.78); RDW 12.8 % (11.8-14.1); RDW-SD 42.0 fL; WBC 6.86 10^3/uL (4.4-10.8)
[2025-05-10 21:22] LABS: ALT 24 U/L (16-63); AST 17 U/L (15-37); Albumin 3.3 g/dL (3.4-5.0); Alkaline Phosphatase 53 U/L (46-116); Anion Gap 6.5 mmol/L (3-11); BUN 14 mg/dL (7-18); Bilirubin, Total 0.4 mg/dL (0.2-1.0); CO2 28.5 mmol/L (21.0-32.0); Calcium 8.9 mg/dL (8.5-10.1); Chloride 105 mmol/L (98-107); Estimated GFR 69.14 (mL/min/1.73m2); Glucose 100 mg/dL (74-106); Potassium 4.3 mmol/L (3.5-5.1); Sodium 140 mmol/L (136-145); Total Protein 6.3 g/dL (6.4-8.2)
== END 2025-05-10 16:30 | disposition home or self-care (01) ==
LOC: NCHCN 16:29
PROVIDERS: PCP Internal Medicine; Visit Provider Internal Medicine
DX: I10 Essential (primary) hypertension (principal)
CPT/HCPCS: 80053; 85027